=== PATIENT | male | born 1995 | race Caucasian/White ===

== ENCOUNTER 2017-09-16 11:57 | Inpatient (IN) | payer OTHER ==
--- NOTE | 2017-09-16 12:17 | EDPHY ---
H & P Smoking Status: Current every day smoker Time Seen by Provider: 09/16/17 12:03 HPI/ROS: CHIEF COMPLAINT: Depression with suicidal ideation HISTORY OF PRESENT ILLNESS: 22-year-old man is brought in by his father. He was at his therapist today and voiced suicidal ideation with plan to use a gun which is present in the home or to walk into traffic. His therapist advised him to come to the ER his father brings him in. He has no other medical complaints. REVIEW OF SYSTEMS: Eye: no change in vision ENT: no sore throat Cardiac: no chest pain or syncope Pulmonary: no cough or SOB Abdomen: no vomiting, diarrhea, abdominal pain Musculoskeletal: no back pain Skin: no rash Neuro: no headache Constitutional: no fever : no urinary symptoms A comprehensive 10 point review of systems is otherwise negative aside from elements mentioned in the history of present illness. PAST MEDICAL HISTORY: Depression Social history: Denies alcohol or drugs today General Appearance: Alert and conversant, cooperative. Eyes: No scleral icterus. ENT, Mouth: Normal mucous membranes. Respiratory: Normal respiratory effort, breath sounds equal, lungs are clear to auscultation. Cardiovascular: Regular rate and rhythm. Gastrointestinal: Abdomen is soft and non tender. Neurological: Alert and oriented x3. Normally conversant. Face symmetric, normal movement and sensation in all extremities. Skin: Warm and dry, no rashes. No laceration or abrasion. Musculoskeletal: No peripheral edema and no joint swelling. Psychiatric: Depressed affect. Admits to suicidal ideation as noted in the HPI. Emergency Department course/MDM: 1219: Placed on a mental health hold by myself for suicidal ideation. Plan for screening labs and psychiatric evaluation. 1344: The patient had a medical screening evaluation performed. There does not appear to be an acute emergent medical or surgical condition which would preclude psychiatric evaluation at this time. Mental health evaluation is requested at at this time. 1500: Signed out to Dr. Barnes with psychiatric evaluation pending. (Bg Morris) Constitutional: Initial Vital Signs Temperature (C) 36.7 C 09/16/17 11:59 Heart Rate 53 L 09/16/17 11:59 Respiratory Rate 18 09/16/17 11:59 Blood Pressure 115/71 09/16/17 11:59 O2 Sat (%) 97 09/16/17 11:59 O2 Delivery Mode Room Air Allergies/Adverse Reactions: No Known Allergies Allergy (Verified 09/16/17 11:58) Home Medications: Medication Instructions Recorded No Medications [NO HOME 02/15/12 MEDICATIONS] Medical Decision Making ED Course/Re-evaluation: I took over care of this patient at 3:00 p.m.. This patient is on an M1 hold for suicidal ideation. This patient has been medically cleared. The patient is awaiting behavioral health evaluation. 4:30 p.m., the patient has been seen and evaluated by Behavioral Health. He will be admitted for inpatient treatment to [address] [place] [address]. I have filled out the appropriate paperwork. The patient's remaining emergency department course under my care has been uneventful. The patient was transferred in stable condition. (Chelsie Barnes) Differential Diagnosis: Differential diagnosis considered for depression including functional and major depression, situational depression, medication side effect, drugs and alcohol abuse. (Bg Morris) - Data Points Laboratory Results: Laboratory Results 09/16/17 12:11 09/16/17 12:11 09/16/17 09/16/17 09/16/17 13:25 12:11 12:11 WBC 3.03 10^3/uL L 10^3/uL (3.80-9.50) RBC 5.47 10^6/uL 10^6/uL (4.40-6.38) Hgb 17.0 g/dL g/dL (13.7-17.5) Hct 47.0 % % (40.0-51.0) MCV 85.9 fL fL (81.5-99.8) MCH 31.1 pg pg (27.9-34.1) MCHC 36.2 g/dL g/dL (32.4-36.7) RDW 11.6 % % (11.5-15.2) Plt Count 231 10^3/uL 10^3/uL (150-400) MPV 10.1 fL fL (8.7-11.7) Neut % (Auto) 39.4 % % (39.3-74.2) Lymph % (Auto) 48.2 % H % (15.0-45.0) [place] % (Auto) 9.2 % % (4.5-13.0) Eos % (Auto) 2.6 % % (0.6-7.6) Baso % (Auto) 0.3 % % (0.3-1.7) Nucleat RBC Rel Count 0.0 % % (0.0-0.2) Absolute Neuts (auto) 1.19 10^3/uL L 10^3/uL (1.70-6.50) Absolute Lymphs (auto) 1.46 10^3/uL 10^3/uL (1.00-3.00) Absolute Monos (auto) 0.28 10^3/uL L 10^3/uL (0.30-0.80) Absolute Eos (auto) 0.08 10^3/uL 10^3/uL (0.03-0.40) Absolute Basos (auto) 0.01 10^3/uL L 10^3/uL (0.02-0.10) Absolute Nucleated RBC 0.00 10^3/uL 10^3/uL (0-0.01) Immature Gran % 0.3 % % (0.0-1.1) Immature Gran # 0.01 10^3/uL 10^3/uL (0.00-0.10) Sodium 142 mEq/L mEq/L (134-144) Potassium 4.4 mEq/L mEq/L (3.5-5.2) Chloride 101 mEq/L mEq/L (97-110) Carbon Dioxide 28 mEq/l mEq/l (22-31) Anion Gap 13 mEq/L mEq/L (8-16) BUN 13 mg/dL mg/dL (7-23) Creatinine 0.9 mg/dL mg/dL (0.7-1.3) Estimated GFR > 60 Glucose 82 mg/dL mg/dL (70-100) Calcium 10.1 mg/dL mg/dL (8.5-10.4) Salicylates < 1.0 mg/dL L mg/dL (2.0-20.0) Urine Opiates Screen NEGATIVE (NEGATIVE) Acetaminophen < 10 mcg/mL L mcg/mL (10-30) Urine Barbiturates NEGATIVE (NEGATIVE) Ur Phencyclidine Scrn NEGATIVE (NEGATIVE) Ur Amphetamine Screen NEGATIVE (NEGATIVE) U Benzodiazepines Scrn NEGATIVE (NEGATIVE) Urine Cocaine Screen NEGATIVE (NEGATIVE) U Marijuana (THC) Screen NEGATIVE (NEGATIVE) Ethyl Alcohol < 10 mg/dL mg/dL (0-10) Departure - Departure Disposition: [facility] IP Clinical Impression: Severe major depression, Suicidal ideation Referrals: Herminia Tillman MD [Primary Care Provider] - As per Instructions
[2017-09-16 12:19] LABS: % IMMATURE GRANULYOCYTES 0.3 % (0.0-1.1); ABSOLUTE IMMATURE GRANULOCYTES 0.01 10^3/uL (0.00-0.10); ADD DIFF? NO; ADD MORPH? NO; ADD SCAN? NO; ATYPICAL LYMPHOCYTE FLAG 0 (0-99); FRAGMENT RBC FLAG 0 (0-99); LEFT SHIFT FLG 0 (0-99); LIPEMIA HEMOLYSIS FLAG 90 (0-99); MEAN CELL HEMOGLOBIN 31.1 pg (27.9-34.1); MEAN CELL HEMOGLOBIN CONCENTR. 36.2 g/dL (32.4-36.7); MEAN CELL VOLUME 85.9 fL (81.5-99.8); MEAN PLATELET VOLUME 10.1 fL (8.7-11.7); PLATELET CLUMPS FLAG 0 (0-99); PLATELET COUNT 231 10^3/uL (150-400); RED BLOOD CELL COUNT 5.47 10^6/uL (4.40-6.38); RED CELL DISTRIBUTION WIDTH 11.6 % (11.5-15.2)
[2017-09-16 12:41] LABS: ANION GAP 13 mEq/L (8-16); CALCIUM 10.1 mg/dL (8.5-10.4); CARBON DIOXIDE 28 mEq/l (22-31); CHLORIDE 101 mEq/L (97-110); CREATININE 0.9 mg/dL (0.7-1.3); ETHANOL SERUM < 10 mg/dL (0-10); GLOMERULAR FILTRATION RATE > 60; GLUCOSE 82 mg/dL (70-100); POTASSIUM 4.4 mEq/L (3.5-5.2); SALICYLATE < 1.0 mg/dL (2.0-20.0); SODIUM 142 mEq/L (134-144)
[2017-09-16] MEDS ORDERED: LORazepam 1 MG TAB PO PRN (21:52)
[2017-09-16] MEDS ORDERED: ACETAMINOPHEN 325 MG TAB PO PRN (21:53)
[2017-09-16] MEDS ORDERED: MAGNESIUM HYDROXIDE 30 ML UDCUP PO PRN (21:54)
[2017-09-16] MEDS ORDERED: MAG HYDROX/AL HYDROX/SIMETH 30 ML UDCUP PO PRN (21:54)
[2017-09-16] MEDS ORDERED: NICOTINE POLACRILEX 2 MG GUM B PRN (22:11)
[2017-09-17] MEDS: ESCITALOPRAM OXALATE 10 MG TAB PO SCH ×2 (12:09→12:38)
--- NOTE | 2017-09-17 13:09 | BCON ---
[f rep st] BEHAVIORAL HEALTH CONSULTATION INPATIENT CONSULTATION DATE OF CONSULTATION: 09/17/2017 REFERRING PHYSICIAN: Dr. Don REASON FOR REFERRAL: Medical clearance for inpatient behavioral health stay. HISTORY OF PRESENT ILLNESS: This patient has a history of depression and was seeing a therapist; however, depression has been worsening over the past month. He eventually became suicidal and at the advice of the therapist was brought to the emergency department with his father. There, he was evaluated by the mental health team and admitted for further psychiatric care. He currently has no medical complaints. PAST MEDICAL HISTORY: Fractured collarbone. PAST SURGICAL HISTORY: Operative repair of the fractured collarbone. MEDICATIONS: He was on no medications prior to admission. ALLERGIES: There are no known drug allergies. SOCIAL HISTORY: He is a student at the [employer]. He has had issues with alcohol abuse including a DUI and has had difficulty maintaining his grades in school. He is currently living with his father. He is a smoker. FAMILY HISTORY: Noncontributory, though there is a history of alcoholism on his mother's side. REVIEW OF SYSTEMS: He denies any fevers or chills, sore throat, cough, dyspnea , dysuria, urinary frequency, or any other infectious symptoms and otherwise a 10-point review of systems is negative. He denies risk factors for HIV, including no IV drug abuse and no unprotected sex. PHYSICAL EXAM: VITALS: Blood pressure is 132/77, heart rate is 61, respiratory rate is 12, oxygen saturation is 97% on room air. Temperature is 36.7 degrees centigrade. His weight is 65.8 kg for a body mass index of 20.2. GENERAL: This is a well-nourished, well-developed man, appears his chronologic age, cooperative and in no acute distress. HEENT: Extraocular movements are intact. Pupils are equal, round, reactive to light. Mucous membranes are moist. Dentition is in good condition. There are no oropharyngeal mucosal lesions and no posterior oropharyngeal mucus. There is no erythema and no exudates. NECK: Supple. HEART: There is a regular rate and rhythm with no murmurs, rubs, or gallops. LUNGS: Clear to auscultation bilaterally. ABDOMEN : Soft, nontender, nondistended with normoactive bowel sounds and no hepatosplenomegaly. EXTREMITIES: There is no cyanosis, clubbing, or edema. NEUROLOGIC: He is alert and oriented x3. Cranial nerves 2-12 are grossly intact. There is no focal weakness and sensation is intact to light touch. LABORATORY DATA: Laboratory studies drawn in the emergency department. CBC revealed neutropenia with a white blood cell count of 3.03. He had a decrement of absolute neutrophils at 1.19, of absolute monocytes at 0.28, and of absolute basophils at 0.01. Otherwise, CBC was within normal limits. Serum chemistry revealed normal renal function and electrolytes. Toxicology in the serum was negative for salicylates, acetaminophen, or ethyl alcohol, and the urine was negative for any substances of abuse. ASSESSMENT/RECOMMENDATIONS: 1. Mental health issues pending further evaluation per Psychiatry and the mental health team. 2. Neutropenia of unclear etiology. Will repeat a CBC in the morning, and if it remains abnormal we will ask for a peripheral smear by the pathologist and then further workup will be indicated, which is likely to be accomplished after his discharge. His neutropenia is not of a sufficient degree to put him at risk for any opportunistic infections. I see no medical contraindications to this patient's continued stay in the inpatient behavioral health unit or to any psychiatric medications or procedures. Thank you very much for including me in the care of this patient and please do not hesitate to contact me or the hospitalist service should there be need for further medical evaluation. /[id number]/MODL MTDD
--- NOTE | 2017-09-17 16:56 | BAPA ---
[f rep st] ADMISSION PSYCHIATRIC ASSESSMENT DATE OF SERVICE: 09/17/2017 CHIEF COMPLAINT: "I'm just kind of lost, I guess." HISTORY OF PRESENT ILLNESS: Patient is a 22-year-old male with no previous psychiatric his tory other than about a month of counseling. He was brought in by his father after he had seen his t herapist earlier in the day and voiced some thoughts of suicide. His therapist, Lisa Ritter (phone #[phone]) was concerned and recommended that they go to the emergency department for evaluation . The patient states that he was has been "going downhill for about a month." He states that the year has seen numerous stressors, including a DUI in November and a decline in his grades since time. He states that his freshman year he partied a lot and did not maintain a 2.0 grade average. He was placed on academic probation and was doing better, but then after his DUI, he began to declin e again. He states that he was maintaining reasonable grade point average until about June and the n states "I was becoming more hopeless that I could ever get everything done." He states that he had been going to DUI classes and taking the classes through the Continuing Education Program through [employer] to get reinstated at the campus. He states that he was falling more and mor e behind, both in his classes and in his DUI classes, and also had not begun his community service. He was feeling overwhelmed by this and states that for reasons he is not entirely sure about, his moo d began to decline even more in July. He states that, at that time, he began feeling more depre ssed, sad, helpless, hopeless, and overwhelmed. He reports poor energy and motivation, struggling to get out of bed to go to class in the morning. His attention and concentration were poor, and he was having trouble completing his course work. He states he began to isolate more and withdrew from fri ends. He states that he is usually a very social person, but had not been interacting with friends r ecently. This was in part due to the fact he has to take the bus wherever he goes, and it is inconve nient to try to go into [place] from his home in [place]. He states that the weekend prior to admi ssion he spent the entire weekend in bed, feeling sad helpless, and hopeless. He reports suicidal id eations starting about 2-3 weeks prior to admission after "a lot of feeling up and down." He states that he would feel depressed and then feel better, and that each time he would feel depressed again, it was worse than the time before. He states that about 3 weeks ago, his depression was particularly intense, and he began to have thoughts of killing himself. He states that he fantasized about walki ng out into the highway and getting hit by a car or shooting himself with a gun. He reported to the [facility] costume director that [address] several times, but he tells me that he has not ac tually done that; he has just thought about doing it. He also states that he does not have a gun but has fantasized about obtaining one and shooting himself. He reports continued depressed mood at thi s time with increased sleep, though he stays up at night until about 2 in the morning and sleeps unti l at least noon. He states he reads or watches TV and notes some difficulty falling asleep prior to this time. He states at this time he feels like he needs to seek help and is open to "anything that would make me feel better." PAST PSYCHIATRIC HISTORY: Patient has had no previous psychiatric hospitalization and no previous me dications or suicide attempts. He denies suicidal ideations prior to about 3 weeks ago. He is in ac tive psychotherapy for the last month on a weekly basis. ALLERGIES: No known medical allergies. CURRENT MEDICATIONS: Saint Negrito's Wort that he takes daily, supplied to him by his father. PAST MEDICAL HISTORY: Noncontributory. He had a minor concussion in high school playing football. SOCIAL HISTORY: Patient was born and raised in [place] and attended [id number] from [employer] through high school. He states that this was a very cloistered environment, and he felt over whelmed when he went to the [employer]. He states that he was living in the dorms and "f ell in with kind of a bad crowd." He states that he began partying on a frequent basis and actually got kicked out of the dorms after the 1st semester due to having alcohol in his room. He returned to live with his parents at that time and states that he continued to drink on a fairly regular basis u ntil receiving the DUI in November 2016. He states that, since that time, he drinks 1 or 2 times per month "but I do not get drunk." The patient is currently living with his father and his father's liborio g-time girlfriend. His mother lives in [place], and he states that he lived with her throughout [employer] school, but he is not close with her at this time because he has made an attempt to separate himsel f because she was "too overprotective." He has a brother who is 6 years older, who lives in [place]. He states that he is withdrawn from his friends and does not have an intimate relationship . The patient is not working and is a full-time student with 4 courses through the Continuing Educat ion Program at the [employer] [facility], hoping to raise his GPA to 2.0 to be reinstated; it is cur rently 1.7. SUBSTANCE ABUSE HISTORY: Patient reports drinking alcohol beginning at the age of 17, but rarely. H e states this increased greatly when he got to college. He currently drinks 1-2 times per month, in his opinion not to the point of intoxication. Marijuana: Patient states that he smokes 1-2 times per month and that it helps with his anxiety and sleep. FAMILY HISTORY: Patient's mother is treated for depression. ADMISSION LABORATORY: CBC shows a white count low at 3.03; otherwise normal. Serum chemistries are normal. Urine drug screen is negative for all substances. Alcohol was less than detectable. MENTAL STATUS EXAMINATION: Reveals a well-groomed, pleasant, and cooperative male. He int eracts well with the examiner, displaying good social skills and a calm and pleasant demeanor. His a ffect is slightly blunted, dysphoric, stable, and appropriate. His mood is described as "depressed." His thought process is linear and goal directed. His thought content reveals no evidence of psycho sis. He is alert and oriented to person, place, time, and situation, and his sensorium is clear. Hi s intellect appears to be at least average as evidenced by his educational history, fund of knowledge , and vocabulary. He does not endorse suicidal ideation at this time, stating that this has passed a nd that he feels relieved by having brought attention to his level of discontent. He is hopeful that any interventions we propose will help him. He states that he feels like he is safe to return home at any time. His insight and judgment appear to be good. IMPRESSION: 1. Major depressive disorder, single episode, moderate to severe, without psychosis. 2. Alcohol use disorder, partial remission. 3. Academic stress, legal problems, and possible family conflicts. Patient is a 22-year-old male with a recent history of increasing depression related, in pa rt, to psychosocial circumstances but that has been enduring for almost a year now and worsening. 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 I discussed with him potential tr eatments, including continuing psychotherapy and possible antidepressant medications. He states that he is willing to take an antidepressant if this will help improve his mood and functioning. I revie wed potential options for this and discussed general theories behind antidepressant function. I revi ewed in detail the risk for suicidal adverse events and monitoring necessary for this. I discussed w ith him several agents, and he prefers a trial of Lexapro. The risks, benefits, and alternatives of this are reviewed with him. We will begin at 10 mg p.o. daily with first dose now and monitor. PLAN: 1. Artesian therapy with Lexapro 10 mg. 2. Continue evaluations and obtain collateral information from patient's therapist and family. 3. Work with the patient to make an appropriate discharge and followup plan. 4. Estimated length of stay is 2-3 days. 5. /[id number]/MODL
[2017-09-18 06:35] VITALS: TEMP 97.7
[2017-09-18] MEDS: ESCITALOPRAM OXALATE 10 MG TAB PO SCH (09:58)
[2017-09-19 06:40] VITALS: BP 107/64; PULSE 60; RESP 16; O2SAT 96
--- NOTE | 2017-09-19 15:47 | SOAPPROG ---
SOAP Progress Note Assessment/Plan: Assessment: Plan: 09/19/17 15:47 Calmer, subjectively improved. He declines further antidepressant treatment at this time. Will continue psychotherapies, schedule family meeting for tomorrow. Subjective: LATE ENTRY FOR 09/18/17. Pt seen, discussed with staff. Reports some nausea and loose bowel from initial dose of Lexapro. He also reports some trouble falling asleep. He then cheeked this morning's dose which staff found in his room on checks. He states he has changed his mind in general about taking antidepressants and doesn't want to take anything at this time. He is participating actively in therapies and believes he is benefitting greatly from groups, especially those involving coping skills and stress management. Objective: Vital Signs Temp Pulse Resp BP Pulse Ox 36.5 C 60 16 107/64 96 09/19/17 06:00 09/19/17 06:00 09/19/17 06:00 09/19/17 06:00 09/19/17 06:00 MSE: Calm, coop. Affect is blunted, stable, approp. Mood is "a lot better." TP linear. TC reveals no psychosis. Denies current SI. - Time Spent With Patient Time Spent With Patient: 25" ICD10 Worksheet Patient Problems: Problems Problem Status Onset Severe major depression Acute Suicidal ideation Acute
== END 2017-09-19 13:36 | disposition home or self-care (01) | DRG 885 ==
LOC: BBEH 20:00
PROVIDERS: ADMIT Psychiatry & Neurology Behavioral Neurology & Neuropsychiatry; ATTEND Psychiatry & Neurology Behavioral Neurology & Neuropsychiatry
DX: F32.2 Major depressive disorder, single episode, severe without psychotic features (principal); Z72.89 Other problems related to lifestyle; F17.210 Nicotine dependence, cigarettes, uncomplicated
CPT/HCPCS: 80305; G0480